=== PATIENT | male | born 1970 | race Caucasian/White ===

== ENCOUNTER 2021-03-02 19:24 | Emergency (ER) | payer OTHER ==
[~2021-03-02] VITALS: Ht 190.5 cm; Wt 131.5 kg
[2021-03-02 19:27] VITALS: BP 152/69
--- NOTE | 2021-03-02 19:49 | NUR ---
PT PRESENTED TO THE ED FOR SCOUT LOWER EXTREMITIES LEG PAIN, AMBULATED TO BEDSIDE W/ ASSISTANCE, SCOUT LOWER EXTREMITIES SWOLLEN, WARM AND TENDER, PAIN SCALE OF 8/10. PMH: HTN, HEART DISEASE, STENT
--- NOTE | 2021-03-02 19:51 | NUR ---
ERMD AT BEDSIDE
[2021-03-02] MEDS ORDERED: HYDROcodone/APAP 5/325 MG 1 TAB TAB PO ONE (20:15)
--- NOTE | 2021-03-02 20:32 | NUR ---
US AT BEDSIDE
[2021-03-02 20:36] LABS: BASOPHILS # (AUTO) 0.1 K/uL (0.00-0.22); BASOPHILS % (AUTO) 0.9 % (0.0-2.0); EOSINOPHILS # (AUTO) 0.1 K/uL (0-0.4); EOSINOPHILS % (AUTO) 1.5 % (0.0-4.0); HEMATOCRIT 39.1 % (36-52); HEMOGLOBIN 12.9 g/dL (12.0-18.0); LYMPHOCYTES # (AUTO) 2.2 K/uL (2.0-11.5); LYMPHOCYTES % (AUTO) 28.4 % (20.5-51.1); MEAN CORPUSCULAR HEMOGLOBIN 29 pg (27-31); MEAN CORPUSCULAR HGB CONC 33 g/dL (33-37); MEAN CORPUSCULAR VOLUME 88.5 fL (80-94); MONOCYTES # (AUTO) 0.7 K/uL (0.8-1.0); MONOCYTES % (AUTO) 8.8 % (1.7-9.3); NEUTROPHILS # (AUTO) 4.7 K/uL (1.8-7.7); NEUTROPHILS % (AUTO) 60.4 % (42.2-75.2); PLATELET COUNT (AUTO) 271 K/uL (140-450); RED BLOOD CELL COUNT(AUTO) 4.42 MIL/uL (4.20-6.10); RED CELL DISTRIBUTION WIDTH 16.4 % (11.6-13.7); WHITE BLOOD COUNT (AUTO) 7.8 K/uL (4.8-10.8)
[2021-03-02 20:47] LABS: ANION GAP 11.3 (8-16); CARBON DIOXIDE 25.8 mmol/L (21-32); CREATININE 0.9 mg/dL (0.6-1.3); POTASSIUM 4.1 mmol/L (3.5-5.1)
[2021-03-02] MEDS ORDERED: cephALEXin 500 MG CAP PO ONE (20:55)
--- NOTE | 2021-03-02 20:57 | NUR ---
XRAY AT BEDSIDE
--- NOTE | 2021-03-02 21:28 | NUR ---
ADMINISTERED ERMD MED ORDERS
[2021-03-02] MEDS ORDERED: FURO-570 PO (21:59)
[2021-03-02] MEDS ORDERED: ACET-9527 PO (21:59)
[2021-03-02] MEDS ORDERED: CEPH-588 PO (21:59)
--- NOTE | 2021-03-02 22:14 | NUR ---
Patient discharged with v/s stable. Written and verbal after care instructions given and explained. Patient alert, oriented and verbalized understanding of instructions. Ambulatory with steady gait. All questions addressed prior to discharge. ID band removed. Patient advised to follow up with PMD. Rx of ACETAMINOPHEN, CEPHALEXIN AND LASIX given. Patient educated on indication of medication including possible reaction and side effects. Opportunity to ask questions provided and answered.
== END 2021-03-02 22:24 | disposition home or self-care (01) ==
LOC: MED 19:24
DX: M79.89 Other specified soft tissue disorders (principal); L03.116 Cellulitis of left lower limb; L03.115 Cellulitis of right lower limb; L85.3 Xerosis cutis; Z88.6 Allergy status to analgesic agent; Z86.718 Personal history of other venous thrombosis and embolism; Z79.899 Other long term (current) drug therapy
CPT/HCPCS: 36415; 73521; 80048; 83036; 85025; 93970; 99285; Q0092

== ENCOUNTER 2021-10-29 12:34 | Inpatient (IN) | payer OTHER ==
[~2021-10-29] VITALS: Ht 190.5 cm; Wt 134.3 kg
[~2021-10-29 12:34] MED LIST: ACET-9527 PO; CEPH-588 PO; FURO-570 PO
[2021-10-29 13:10] VITALS: BP 176/84
[2021-10-29] MEDS ORDERED: cefTRIAXone 1,000 MG in DEXT 5% MINI-BAG PLUS 50 ML IV ONE (14:20)
[2021-10-29] MEDS ORDERED: NACL 0.9% 1,000 ML IV SCH (14:20)
[2021-10-29 14:43] LABS: BASOPHILS # (AUTO) 0.1 K/uL (0.00-0.22); BASOPHILS % (AUTO) 0.8 % (0.0-2.0); EOSINOPHILS # (AUTO) 0.3 K/uL (0-0.4); EOSINOPHILS % (AUTO) 3.1 % (0.0-4.0); HEMATOCRIT 35.1 % (36-52); HEMOGLOBIN 11.6 g/dL (12.0-18.0); LYMPHOCYTES # (AUTO) 1.7 K/uL (2.0-11.5); LYMPHOCYTES % (AUTO) 20.8 % (20.5-51.1); MEAN CORPUSCULAR HEMOGLOBIN 29 pg (27-31); MEAN CORPUSCULAR HGB CONC 33 g/dL (33-37); MEAN CORPUSCULAR VOLUME 86.7 fL (80-94); MONOCYTES # (AUTO) 0.8 K/uL (0.8-1.0); MONOCYTES % (AUTO) 9.8 % (1.7-9.3); NEUTROPHILS # (AUTO) 5.5 K/uL (1.8-7.7); NEUTROPHILS % (AUTO) 65.5 % (42.2-75.2); PLATELET COUNT (AUTO) 248 K/uL (140-450); RED BLOOD CELL COUNT(AUTO) 4.05 MIL/uL (4.20-6.10); RED CELL DISTRIBUTION WIDTH 17.1 % (11.6-13.7); WHITE BLOOD COUNT (AUTO) 8.4 K/uL (4.8-10.8)
[2021-10-29] MEDS ORDERED: MORPHINE SULFATE 4 MG/ML SYR IVP ONE (15:00)
[2021-10-29] MEDS ORDERED: cefTRIAXone 1,000 MG VIAL ONE (15:12)
[2021-10-29 15:14] LABS: ALBUMIN 2.9 g/dL (3.4-5.0); ANION GAP 9.3 (8-16); CARBON DIOXIDE 26.9 mmol/L (21-32); CREATININE 0.9 mg/dL (0.6-1.3); POTASSIUM 3.2 mmol/L (3.5-5.1); TOTAL BILIRUBIN 0.5 mg/dL (0.0-1.0)
[2021-10-29] MEDS ORDERED: ONDANSETRON 4 MG/2 ML VIAL IVP PRN (17:45)
[2021-10-29] MEDS ORDERED: MORPHINE SULFATE 2 MG/ML SYR IVP PRN (17:45)
[2021-10-29] MEDS ORDERED: VANCOMYCIN PER PHARMACY MC PRN (17:50)
[2021-10-29] MEDS ORDERED: APIX2.5 PO (18:50)
[2021-10-29] MEDS ORDERED: CARV6.25 PO (18:50)
[2021-10-29] MEDS ORDERED: PANT40EC PO (18:50)
[2021-10-29] MEDS ORDERED: ASPI-1129 PO (18:50)
[2021-10-29] MEDS ORDERED: METO50TE2 PO (18:50)
[2021-10-29] MEDS ORDERED: ATOR20TA PO (18:50)
[2021-10-29] MEDS ORDERED: VANCOMYCIN 1,000 MG VIAL ONE (21:12)
[2021-10-29] MEDS ORDERED: VANCOMYCIN 500 MG VIAL ONE (21:13)
[2021-10-29] MEDS: NACL 0.9% 1,000 ML IV SCH (21:30)
[2021-10-29] MEDS: VANCOMYCIN 1,500 MG in DEXTROSE 5% 500 ML IV SCH (21:30)
[2021-10-30] VITALS: BP 146/81
[2021-10-30] MEDS ORDERED: POTASSIUM CHLORIDE 10 MEQ TABER PO SCH ×2 (00:55→10:00)
[2021-10-30] MEDS: NACL 0.9% 1,000 ML IV SCH (03:45)
[2021-10-30] MEDS ORDERED: VANCOMYCIN 1,000 MG VIAL ONE (04:02)
[2021-10-30] MEDS ORDERED: VANCOMYCIN 500 MG VIAL ONE (04:03)
[2021-10-30] MEDS: VANCOMYCIN 1,500 MG in DEXTROSE 5% 500 ML IV SCH ×3 (04:05→20:30)
[2021-10-30 07:02] LABS: BASOPHILS % (AUTO) 0.4 % (0.0-2.0); EOSINOPHILS # (AUTO) 0.3 K/uL (0-0.4); HEMATOCRIT 32.5 % (36-52); HEMOGLOBIN 10.9 g/dL (12.0-18.0); LYMPHOCYTES # (AUTO) 1.5 K/uL (2.0-11.5); LYMPHOCYTES % (AUTO) 21.8 % (20.5-51.1); MEAN CORPUSCULAR HEMOGLOBIN 29 pg (27-31); MEAN CORPUSCULAR HGB CONC 34 g/dL (33-37); MEAN CORPUSCULAR VOLUME 86.5 fL (80-94); MONOCYTES # (AUTO) 0.6 K/uL (0.8-1.0); MONOCYTES % (AUTO) 9.3 % (1.7-9.3); NEUTROPHILS # (AUTO) 4.5 K/uL (1.8-7.7); NEUTROPHILS % (AUTO) 64.5 % (42.2-75.2); PLATELET COUNT (AUTO) 230 K/uL (140-450); RED BLOOD CELL COUNT(AUTO) 3.76 MIL/uL (4.20-6.10); RED CELL DISTRIBUTION WIDTH 17.5 % (11.6-13.7); WHITE BLOOD COUNT (AUTO) 6.9 K/uL (4.8-10.8)
[2021-10-30 07:21] LABS: ALBUMIN 2.2 g/dL (3.4-5.0); ANION GAP 7.3 (8-16); CREATININE 0.7 mg/dL (0.6-1.3); MAGNESIUM 2.1 mg/dL (1.8-2.4); PHOSPHORUS 3.2 mg/dL (2.5-4.9); POTASSIUM 3.3 mmol/L (3.5-5.1); TOTAL BILIRUBIN 0.3 mg/dL (0.0-1.0)
[2021-10-30 08:00] VITALS: BP 109/66
[2021-10-30 16:00] VITALS: BP 157/81
[2021-10-31] VITALS: BP 151/84
[2021-10-31] MEDS: VANCOMYCIN 1,500 MG in DEXTROSE 5% 500 ML IV SCH ×3 (03:24→19:41)
[2021-10-31 07:43] LABS: ANION GAP 8.2 (8-16); CARBON DIOXIDE 28.6 mmol/L (21-32); CREATININE 0.7 mg/dL (0.6-1.3); POTASSIUM 3.8 mmol/L (3.5-5.1)
[2021-10-31] MEDS: FUROSEMIDE 40 MG/4 ML VIAL IVP SCH (10:10)
[2021-10-31] MEDS: ACETAMINOPHEN 325 MG TAB PO PRN ×2 (10:10→23:30)
[2021-10-31] MEDS: NON ADHERENT DRESSING TP SCH (13:00)
[2021-10-31 18:52] VITALS: BP 167/97
[2021-11-01] MEDS: VANCOMYCIN 1,500 MG in DEXTROSE 5% 500 ML IV SCH ×3 (03:00→18:40)
[2021-11-01] MEDS ORDERED: VANCOMYCIN 500 MG VIAL ONE (03:58)
[2021-11-01] MEDS ORDERED: VANCOMYCIN 1,000 MG VIAL ONE (03:58)
[2021-11-01 07:06] LABS: ANION GAP 6.8 (8-16); CARBON DIOXIDE 31.9 mmol/L (21-32); CREATININE 0.7 mg/dL (0.6-1.3); POTASSIUM 3.7 mmol/L (3.5-5.1)
[2021-11-01] MEDS: FUROSEMIDE 40 MG/4 ML VIAL IVP SCH (09:13)
[2021-11-01] MEDS: NON ADHERENT DRESSING TP SCH (12:30)
[2021-11-01 20:00] VITALS: BP 160/85
[2021-11-01] MEDS: hydrALAZINE 20 MG/ML VIAL IVP PRN (22:58)
[2021-11-02] MEDS ORDERED: VANCOMYCIN 1,000 MG VIAL ONE (03:06)
[2021-11-02] MEDS ORDERED: VANCOMYCIN 500 MG VIAL ONE (03:14)
[2021-11-02] MEDS: VANCOMYCIN 1,500 MG in DEXTROSE 5% 500 ML IV SCH ×2 (03:23→11:04)
[2021-11-02 04:00] VITALS: BP 159/93
[2021-11-02] MEDS: hydrALAZINE 20 MG/ML VIAL IVP PRN (06:39)
[2021-11-02 06:58] LABS: ANION GAP 9.5 (8-16); CARBON DIOXIDE 28.2 mmol/L (21-32); CREATININE 0.6 mg/dL (0.6-1.3); POTASSIUM 3.7 mmol/L (3.5-5.1)
[2021-11-02 07:39] VITALS: BP 159/94
[2021-11-02] MEDS: FUROSEMIDE 40 MG/4 ML VIAL IVP SCH (09:16)
[2021-11-02] MEDS: NON ADHERENT DRESSING TP SCH (13:02)
[2021-11-02] MEDS ORDERED: CLIN300C2 PO (14:36)
== END 2021-11-02 16:42 | disposition home health service (06) | DRG 383 ==
LOC: MED 12:34 → MMU 16:55 → MTU 17:34
PROVIDERS: ADMIT Internal Medicine; ATTEND Internal Medicine
DX: L03.116 Cellulitis of left lower limb (principal); E44.1 Mild protein-calorie malnutrition; I10 Essential (primary) hypertension; L03.115 Cellulitis of right lower limb; E78.5 Hyperlipidemia, unspecified; F15.10 Other stimulant abuse, uncomplicated; I25.10 Atherosclerotic heart disease of native coronary artery without angina pectoris; E66.01 Morbid (severe) obesity due to excess calories; Z20.822 Contact with and (suspected) exposure to COVID-19; Z68.37 Body mass index [BMI] 37.0-37.9, adult; Z88.6 Allergy status to analgesic agent; Z79.899 Other long term (current) drug therapy
CPT/HCPCS: 36415; 71045; 80048; 80053; 80202; 83605; 83735; 83880; 84100; 84484; 85025; 85651; 87040; 87070; 87075; 87081; 93005; 93970; 96365; 96375; 99285; J0360; J0696; J1940; J2270; J3370; J7060; Q0092